=== PATIENT | male | born 1935 | race Caucasian/White ===

== ENCOUNTER 2017-01-12 09:22 | Day surgery (SDC) | payer MEDICARE ==
[2017-01-08 09:58] LABS: HEMATOCRIT 43.3 % (40.0-51.0)
[2017-01-08 11:04] LABS: BUN (BLOOD UREA NITROGEN) 29 MG/DL (6-23); CALCIUM, SERUM 9.2 MG/DL (8.5-10.4); CHLORIDE, SERUM 100 MMOL/L (96-112); CO2 (CARBON DIOXIDE) 32 MMOL/L (24-34); GFR AFRICAN AMERICAN 48 ML/MIN (>=60); GFR NON AFRICAN AMERICAN 41 ML/MIN (>=60); GLUCOSE, SERUM 110 MG/DL (60-99); POTASSIUM, SERUM 4.6 MMOL/L (3.5-5.3); SODIUM, SERUM 138 MMOL/L (135-148)
[2017-01-08 11:05] LABS: CREATININE 1.55 MG/DL (0.70-1.30)
--- NOTE | ~2017-01-12 | OP ---
Record Of Operation [facility] [address] [place]. [address] NAME: SIMA OVIEDO JR : 35 STATUS : [place] [facility] [place] [facility] [place] PAT#: [id number] AGE: 81 ADM/REG DATE : 01/12/17 MR#: [id number] REPORT SERV DATE: 01/12/17 DICTATED BY: Svetlana JOHNSON DATE: 01/12/17 REPORT STATUS : Draft TRANSCRIBED BY: LUCIAN DATE: 01/12/17 DATE OF PROCEDURE: 01/12/2017 PREOPERATIVE DIAGNOSIS: Right mid cheek invasive, poorly differentiated squamous carcinoma. POSTOPERATIVE DIAGNOSIS: Right mid cheek invasive, poorly differentiated squamous carcinoma. NAME OF OPERATION: 1. Wide excision of squamous cell carcinoma of the right cheek with frozen section. 2. Re-excision of right cheek, 6 o'clock margin with frozen section. 3. Surgical excisional preparation of right cheek defect. 4. Reconstruction of right cheek defect with rotation flap closure. FINDINGS: A 17 mm tall x 19 mm wide initial excision of right mid cheek squamous carcinoma with 3 mm margins; frozen section showed margins clear except for in situ squamous carcinoma at the 6 o'clock margin; additional 7 mm x 2.5 mm, 6 o'clock margin, sent for frozen section; additional 6 o'clock margin free of tumor on frozen section. INDICATIONS: This 81-year-old gentleman had a lesion of his right cheek incisional biopsy revealing a poorly differentiated squamous carcinoma with invasive carcinoma focally at the depth of the wound, and one of the borders, with extensive in situ at the peripheral borders as well. He was referred for definitive excision. The pros and cons, alternatives, benefits, risks, limitations, and complications (including, but not limited to, infection, scarring, ectropion, suture reaction, recurrence of tumor, imponderables) were discussed with the patient, and his , and his daughter. No guarantees were expressed. He understands and wishes to proceed. Proper consent was obtained. DESCRIPTION OF PROCEDURE: He was taken into the operating room and given general oral endotracheal anesthesia in the supine position. The face and upper neck were prepped with Hibiclens and saline followed by isopropyl alcohol. None of these solutions got in his eyes. Sterile drapes were applied. Careful markings were made around the periphery of the tumor on the right mid cheek. After that a 3 mm margin was marked out circumferentially around this and the resulting measurement was, as stated above, 17 mm tall and 13 mm wide. The right medial labial fold was marked out and then the parallel radial relaxed skin tension lines were marked out from there on the cheek all way to the lateral canthal area. A fusiform ellipse was marked out around this, anticipating that might be the possible closure. The cheek was injected with 1% Xylocaine with 1:100,000 epinephrine. An infraorbital nerve area was injected with 0.5% Marcaine with 1:200,000 epinephrine. The 12 o'clock, 3 o'clock, 6 o'clock, and 9 o'clock positions on the specimen had been marked out as well. The #15C blade was used to incise the cheek according to the markings to include the margins and the tumor. The blade was beveled away from the tumor. Before the tumor was removed from the tumor bed, a long suture was placed at the 12 o'clock position, and a short suture was placed at the 6 o'clock position. The #15 blade was then used to remove the tumor with its margins, full thickness skin, and approximately 1 cm of fat. The pathologist was brought into the room for orientation and to perform frozen Record Of Operation [address] [address] NAME: SIMA OVIEDO : 35 STATUS : REG [facility] [place] [place] PAT#: [id number] AGE: 81 ADM/REG DATE : 01/12/17 MR#: [id number] REPORT SERV DATE: 01/12/17 DICTATED BY: Svetlana JOHNSON DATE: 01/12/17 REPORT STATUS : Draft TRANSCRIBED BY: LUCIAN DATE: 01/12/17 sections. While the frozen sections were being performed, a large lateral rotation flap was developed in the subcutaneous plane with the [place] needle tip cautery at a low setting. This elevation was carried out over and passed the malar eminence and down inferiorly as well. Medial to the excision, flap elevation was accomplished to the mid nasofacial sulcus and to the melolabial fold. Total flap development was 8 cm x 6 cm. Frozen sections returned showing margins free of tumor except for in situ squamous carcinoma at the 6 o'clock position. An additional 2.5 mm x 7 mm strip of 6 o'clock margin was given to the pathologist with ink marking the new true margin. The pathologist watched me take the specimen, so he had proper orientation. Frozen sections returned showing margins free of tumor. Next, the lateral cheek flap was rotated in a fashion to prevent ectropion. It was rotated and secured with 4-0 Vicryl deep. The dog-ear deformity superiorly was treated in a standard fashion and closed with 5-0 and 6-0 Vicryl. Inferiorly the dog ear deformity was treated with the #15 blade in a standard fashion and closed with 5-0 Vicryl. The skin edges were coapted with Dermabond after the skin had been cleaned with hydrogen peroxide and dried. Mastisol and paper tape were also applied in antitension fashion. He was awakened, extubated, and taken to the recovery room in good condition having tolerated the procedure well. Home going instructions include recheck in the office in 13 days. He is to keep the tape dry and intact. He is to limit laughing, talking, smiling, chewing, trying to keep his cheeks still. He was given prescriptions for cephalexin 500 mg #14 one p.o. b.i.d. until all taken; generic Zofran 8 mg ODT #6 one dissolved orally q.6 hours p.r.n. nausea or vomiting; hydrocodone 7.5 mg/325 APAP #15 one p.o. q.4 to 6 hours p.r.n. pain. HJL/MODL Svetlana Johnson M.D. / [id number] CC: Ambar Downs M.D. Tareck Kadrie, M.D. Walter Rose, M.D.
[~2017-01-12 09:22] MED LIST: ACET500CAP PO; ALBUTEROL5 INH; ASAB PO; C2 PO; CENTRUM PO; CIP5 PO; DSS PO; DUONEB INH; FERROUS SULF325 M1 PO; FESO4UDL PO; FLAG500TAB PO; FLOMAX4 PO; FLORASTOR250 MG PO; FOLATE 1 MG PO; FOLIC PO; HYDROCODONE/APAP PO; INDO50 PO; IRON325 MG PO; IVIGLIQ IV; L20 PO; L40 PO; L5 PO; LOP25 PO; MAALOX PO; MAX25 PO; MOBIC15 MG PO; MTX2.5 PO; MULTIVITAMI1 PO; NEUR300 PO; NEUR600 PO; NITROQUICK0.4 MG SL; NORCO1 TA1 PO; NOVOLOG SC; NOVOPEN SC; P5 PO; PACERONE200 MG PO; PCET PO; PEP20 PO; PHILLIPS M800 MG/5 M PO; PLAQ200B PO; PRESERVISION A1 EAC1 PO; PRIN20 PO; T PO; THIAMINE PO; TOPXL25 PO; TYLENOL 8 HR650 MG PO; ULTRAM50 PO; VICODINTAB PO; VITAMIN B-1500 MG PO; VITAMIN D1000 UNI1 PO; VITC500 PO; WARFARIN SODIUM PO; Z100 PO; ZOCOR10 PO; ZOCOR40 PO; ZOFRAN ODT4 MG PO; ZOLOFT25 MG PO
[2017-06-25] MEDS ORDERED: PRESERVISION A1 EAC1 PO (19:34)
[2017-06-25] MEDS ORDERED: FERROUS SULF325 M1 PO (19:34)
[2017-06-25] MEDS ORDERED: Z100 PO (19:34)
[2017-06-25] MEDS ORDERED: FOLIC PO (19:35)
[2017-06-25] MEDS ORDERED: L20 PO (19:35)
[2017-06-25] MEDS ORDERED: VITAMIN D31000 UNIT PO (19:35)
[2017-06-25] MEDS ORDERED: LOP25 PO (19:36)
[2017-06-25] MEDS ORDERED: CENTRUM PO (19:37)
[2017-06-25] MEDS ORDERED: NEUR600 PO (19:37)
[2017-06-25] MEDS ORDERED: NORCO1 TA2 PO (19:39)
[2017-06-25] MEDS ORDERED: IVIGLIQ IV (19:39)
[2017-06-25] MEDS ORDERED: ACET500CAP PO (19:40)
[2017-06-25] MEDS ORDERED: LUCENTIS OPH (19:42)
== END 2017-01-12 17:33 | disposition home or self-care (01) ==
LOC: SDC 09:22
PROVIDERS: Specialist
PROC: 0KX10ZZ Transfer Facial Muscle, Open Approach (ICD-10-PCS; principal; 2017-01-12 11:00)
DX: D09.8 Carcinoma in situ of other specified sites (principal); I13.0 Hypertensive heart and chronic kidney disease with heart failure and stage 1 through stage 4 chronic kidney disease, or unspecified chronic kidney disease; I50.9 Heart failure, unspecified; I48.91 Unspecified atrial fibrillation; N18.9 Chronic kidney disease, unspecified; E78.00 Pure hypercholesterolemia, unspecified; Z79.82 Long term (current) use of aspirin; Z79.52 Long term (current) use of systemic steroids; Z79.891 Long term (current) use of opiate analgesic; Z79.899 Other long term (current) drug therapy; Z98.890 Other specified postprocedural states; Z89.421 Acquired absence of other right toe(s)
CPT/HCPCS: 80048; 82962; 85014; 85018; 88305; 88331; 88332; 93005; A9270-GY; J0690; J2370; J2405; J2710; J3010

== ENCOUNTER 2017-07-15 01:43 | Inpatient (IN) | payer MEDICARE ==
[~2017-07-15] VITALS: Ht 175.3 cm; Wt 121.2 kg
--- NOTE | ~2017-07-15 | CN ---
Consultation Report [facility] [address] [place]. [address] NAME: SIMA REEVES JR : 35 STATUS : ADM Chad PAT#: [id number] AGE: 82 ADM/REG DATE : 07/15/17 MR#: [id number] REPORT SERV DATE: 07/16/17 DICTATED BY: ROSSY CHOUDHARY DATE: 07/16/17 REPORT STATUS : Draft TRANSCRIBED BY: MODL DATE: 07/16/17 PULMONARY CONSULTATION DATE OF CONSULTATION: 07/16/2017 REASON FOR CONSULTATION: Hypoxia and hypercapnia. HISTORY OF PRESENT ILLNESS: Note the history is taken from the available medical record and from the patient. Mr. 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 He was found to have an elevated pCO2 and low PO2 on arterial blood gas, so Pulmonary was consulted for assistance. Currently, the patient is oriented and gives some of the history. He states he was noted to have significant shortness of breath by his outpatient neurologist at a recent appointment, but denies any dyspnea. He denies wheezing, cough, sputum production, or other pulmonary complaints. He states his activity is severely limited by comorbid conditions including his chronic inflammatory demyelinating polyneuropathy. He states he has never been diagnosed with any pulmonary disease, though many years ago he was told he had COPD. He denies a history of obstructive sleep apnea, though he has had two sleep studies. He states he has never been on CPAP, BiPAP, or supplemental oxygen. He states he has never been on any pulmonary medications. With regard to his polyneuropathy, he states it is confined to lower extremities that review of the available medical record indicates that his upper extremities are involved as well. PAST MEDICAL HISTORY: 1. Former smoker. 2. 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 3. Chronic kidney disease. 4. Osteomyelitis of the toe. 5. Atrial fibrillation. 6. Diastolic heart failure. 7. Gout. 8. Psoriatic arthritis previously treated with methotrexate. 9. Squamous cell carcinoma of the cheek - excised. 10.Osteoarthritis. 11.Recurrent urinary tract infection. 12.Diabetes mellitus. 13.Hyperlipidemia. 14.Benign prostatic hypertrophy. Consultation Report [place] [address] [place]. [address] NAME: SIMA REEVES JR : 35 STATUS : ADM Chad PAT#: [id number] AGE: 82 ADM/REG DATE : 07/15/17 MR#: [id number] REPORT SERV DATE: 07/16/17 DICTATED BY: ROSSY CHOUDHARY DATE: 07/16/17 REPORT STATUS : Draft TRANSCRIBED BY: MODRiley DATE: 07/16/17 15.Anemia. 16.Left footdrop. 17.Right total knee arthroplasty. 18.Previous rotator cuff surgery. 19.Bilateral hip arthroplasty. 20.Carpal tunnel syndrome. 21.Rotator cuff surgery. FAMILY HISTORY: He denies family history of pulmonary diseases. SOCIAL HISTORY: He smoked one pack of cigarettes per day for many years and quit in 1967. He denies ethanol intake, past/present drug use, chewing tobacco or occupational exposures. He is and has two daughters. As noted, he has been residing in [place]. He previously worked in a [employer], but states he had no occupational exposures as noted. MEDICATIONS: Outpatient and inpatient medications were reviewed and are as documented in the record. He was on no pulmonary medications prior to admission. ALLERGIES: HE DENIES MEDICATION ALLERGIES. REVIEW OF SYSTEMS: A 10-point system review was conducted and is remarkable for the symptoms as described in the history of present illness. He denies GERD symptoms or nasal symptoms. He denies carlos symptoms of obstructive sleep apnea, though he states that he sleeps "quite a bit during the day" due to boredom and lack of activity. PHYSICAL EXAMINATION: VITAL SIGNS: Temperature 96.6 degrees, heart rate 76, blood pressure 131/61, respiratory rate 20, oxygen saturation 90% on supplemental oxygen at a flow rate of 2 L/minute. GENERAL: Obese white male. Alert, oriented to name and place. Appropriate. No apparent distress. HEENT: Normocephalic. Atraumatic. There is no scleral icterus. The conjunctivae are clear. The oropharynx is clear. NECK: Supple. No lymphadenopathy was noted. LUNGS: Fair effort. There are diminished breath sounds at both bases. The lungs are clear to auscultation bilaterally. HEART: Regular rate and rhythm. No ectopy was noted. There is a 3/6 systolic murmur. ABDOMEN: Soft. Nontender. Nondistended. Normal bowel sounds are noted in all four quadrants. BILATERAL EXTREMITIES: There is trace pretibial edema. No cyanosis or clubbing was noted. NEUROLOGICAL: Generalized weakness in the upper and lower extremities with the weakness being worse in the lower extremities. SKIN: No rashes were noted. There is generalized pallor. Consultation Report [facility] [address] [address] NAME: SIMA REEVES JR : 35 STATUS : ADM Chad PAT#: [id number] AGE: 82 ADM/REG DATE : 07/15/17 MR#: [id number] REPORT SERV DATE: 07/16/17 DICTATED BY: ROSSY CHOUDHARY DATE: 07/16/17 REPORT STATUS : Draft TRANSCRIBED BY: LUCIAN DATE: 07/16/17 LABORATORY RESULTS: The labs were reviewed and are as documented in the record. Notable labs include a white blood cell count of 13.1. The procalcitonin is 0.17. The BNP is 52. The C-reactive protein is 215 with an ESR of 99. Arterial blood gas revealed pH of 7.36, pCO2 of 63, PO2 of 53 on room air. Arterial blood gas revealed pH of 7.32, pCO2 of 72, PO2 of 69 on supplemental oxygen at a flow rate of 2 L/minute. The chest x-ray done this admission did not reveal any infiltrates, effusions, or nodules. There was an elevated right hemidiaphragm. There are low lung volumes consistent with poor effort. ASSESSMENT AND PLAN: Mr. Reeves is an 82-year-old white male, former smoker, with known low forced vital capacity and low diffusing capacity on prior pulmonary function testing and possible obstructive sleep apnea. He has a stable eventration of the right hemidiaphragm. He was admitted with hypoxemia and hypercapnic respiratory failure that is likely related to his underlying neuromuscular weakness as well as his possible obstructive sleep apnea. He may qualify for BiPAP/other home ventilator based on his neuromuscular weakness. We would need to obtain his previous sleep study results. Additionally, we would need an overnight oximetry and current spirogram. He does qualify based on his elevated pCO2, but would need a forced vital capacity less than 50% of predicted on spirogram and an overnight oximetry with an oxygen saturation less than or equal to 88% for more than five minutes with the patient on supplemental oxygen. An overnight oximetry and bedside spirogram will be ordered for this patient. If he does not qualify based on these criteria, then he will need an outpatient polysomnogram. Recommend continuing him on supplemental oxygen. Consider consulting Neurology as his ESR and CRP are elevated. Thank you very much for this consultation. CHRISTINA/LUCIAN Rossy Choudhary M.D. / [id number] CC: Consultation Report [address] [place]. [address] NAME: SIMA REEVES : 35 STATUS : ADM Chad PAT#: [id number] AGE: 82 ADM/REG DATE : 07/15/17 MR#: [id number] REPORT SERV DATE: 07/16/17 DICTATED BY: ROSSY CHOUDHARY DATE: 07/16/17 REPORT STATUS : Draft TRANSCRIBED BY: LUCIAN DATE: 07/16/17 Ambar Austin M.D.
--- NOTE | ~2017-07-15 | PUL ---
[place] [address] [place]. [address] NAME: SIMA OVIEDO JR : 35 STATUS : ADM Chad PAT#: [id number] AGE: 82 ADM/REG DATE : 07/15/17 MR#: [id number] REPORT SERV DATE: 07/17/17 DICTATED BY: ROSSY CHOUDHARY DATE: 07/17/17 REPORT STATUS : Draft TRANSCRIBED BY: MODL DATE: 07/17/17 PULMONARY FUNCTION TEST OVERNIGHT OXIMETRY REPORT START DATE OF TESTIN07/16/2017. END DATE OF TESTIN07/17/2017. COMMENTS: Testing conducted with the patient breathing supplemental oxygen at a flow rate of 2 L/minute. RESULTS: Total valid sampling time 6 hours 11 minutes and 59 seconds. Total time with an oxygen saturation less than 88%, 21 minutes and 2 seconds. Oxygen desaturation event index 11.3. IMPRESSION: There was significant desaturation during this study conducted while the patient was breathing supplemental oxygen at a flow rate of 2 L/minute. The oxygen desaturation event index was elevated suspicious for possible obstructive sleep apnea. Recommend increasing supplemental oxygen flow rate to a minimum of 3 L/minute with sleep. Additionally, recommend formal sleep study to evaluate for possible obstructive sleep apnea if clinically indicated. PS/LUCIAN Rossy Choudhary M.D. / [id number] CC: Ambar Austin M.D.
--- NOTE | ~2017-07-15 | PUL ---
[place] [address] [place]. [address] NAME: SIMA OVIEDO JR : 35 STATUS : ADM IN [facility]#: [id number] AGE: 82 ADM/REG DATE : 07/17/17 MR#: [id number] REPORT SERV DATE: 07/19/17 DICTATED BY: ROSSY CHOUDHARY DATE: 07/19/17 REPORT STATUS : Draft TRANSCRIBED BY: MODL DATE: 07/19/17 PULMONARY FUNCTION TEST DATE OF TESTIN07/17/2017 DIAGNOSIS: Delirium. RESULTS: 1. FEV1 of 0.75 L (28% of predicted). 2. FVC 1.18 L (31% of predicted). 3. FEV1/FVC ratio 64%. IMPRESSION: There is very severe obstructive ventilatory impairment. The forced vital capacity is reduced suggestive of restriction. PS/MODL Rossy Choudhary M.D. / [id number] CC: Ambar Parham M.D.
--- NOTE | ~2017-07-15 | PUL ---
[place] [address] [place]. [address] NAME: SIMA OVIEDO JR : 35 STATUS : ADM Chad PAT#: [id number] AGE: 82 ADM/REG DATE : 07/15/17 MR#: [id number] REPORT SERV DATE: 07/17/17 DICTATED BY: ROSSY CHOUDHARY DATE: 07/17/17 REPORT STATUS : Draft TRANSCRIBED BY: MODL DATE: 07/17/17 PULMONARY FUNCTION TEST OVERNIGHT OXIMETRY REPORT START DATE OF TESTIN07/15/2017. END DATE OF TESTIN07/16/2017. COMMENTS: Testing was conducted with the patient breathing supplemental oxygen at a flow rate of 2 L/minute. RESULTS: Total valid sampling time 6 hours 11 minute and 13 seconds. Total time with an oxygen saturation less than 88%, 6 minutes and 6 seconds. Oxygen desaturation event index 8.4. IMPRESSION: There was significant oxygen desaturation during this study conducted while the patient was breathing supplemental oxygen at a flow rate of 2 L/minute. The oxygen desaturation event index was elevated suspicious for possible obstructive sleep apnea. RECOMMEND: Supplemental oxygen at a minimum flow rate of 3 L/minute with sleep. Additionally, recommend formal sleep study to evaluate for possible obstructive sleep apnea if clinically indicated. PS/LUCIAN Rossy Choudhary M.D. / [id number] CC: Ambar Austin M.D.
--- NOTE | ~2017-07-15 | HP ---
History And Physical [place] [address] [facility] [place]. [address] NAME: SIMA OVIEDO JR : 35 STATUS : ADM Chad PAT#: [id number] AGE: 82 ADM/REG DATE : 07/15/17 MR#: [id number] REPORT SERV DATE: 07/15/17 DICTATED BY: KHOA VILLALPANDO DATE: 07/15/17 REPORT STATUS : Draft TRANSCRIBED BY: MODRiley DATE: 07/15/17 DATE OF ADMISSION: 07/15/2017 CHIEF COMPLAINT: Acute mental status change. HISTORY OF PRESENT ILLNESS: The patient is an 82-year-old male, who comes from [facility] for increasing confusion over the last week. The patient was brought in by , who has currently returned home and not available for this communications writer, but per reports when talking with ER team and nursing staff has reported that the patient over the last week has had on and off waxing and waning mental status. Earlier today, the patient was in his normal state of mind, talking, able to hold, be alert to person, place, self, and situation. On my exam, the patient is only alert to person, not place or situation. Symptoms are intermittent and mild, but no pain or radiating symptoms. The patient denies any review of systems including no headache, nausea, vomiting, diaphoresis, shortness of breath, fever, chills, palpitations, swelling, or wheezing. There is no worsening or relieving factors that are noted. The patient's symptoms were better earlier when evaluated by the ER staff but worse at this time. REVIEW OF SYSTEMS: The patient when awakened to my questioning denies all 10-point review of systems, even confusion, however, he is still not oriented. PAST MEDICAL HISTORY: Obtained from medical records with history of CKD 4; osteomyelitis of the toe; squamous cell of cheek, post excision; diastolic heart failure; atrial fibrillation; psoriatic arthritis; chronic inflammatory demyelinating polyneuropathy. SOCIAL HISTORY: No smoking, alcohol, or illicits. FAMILY HISTORY: Coronary artery disease and cancer. ALLERGIES: NONE. SURGICAL HISTORY: Right total knee replacement, bilateral hip and back surgery, rotator cuff, carpal tunnel, wide excision of squamous cell on the right cheek and frozen section, right second toe amputation. MEDICATIONS: Allopurinol, Norvasc, aspirin, Dulcolax, ferrous sulfate, folic acid, Lasix, Neurontin, [place], Lopressor. also reports every three weeks gets IVIG. PHYSICAL EXAMINATION: VITAL SIGNS: Patient's blood pressure 124/79, temperature 98.1, pulse 97, respirations 20, O2 sats 96%. GENERAL: In no acute distress currently, resting, well developed, well nourished. EYES: No scleral icterus. EOMI. ENT: Nares patent. Dry mucous membranes. RESPIRATORY: Clear to auscultation. No wheezes, rales, however, when resting, does have History And Physical [address] [place]. [address] NAME: SIMA OVIEDO JR : 35 STATUS : ADM Chad PAT#: [id number] AGE: 82 ADM/REG DATE : 07/15/17 MR#: [id number] REPORT SERV DATE: 07/15/17 DICTATED BY: KHOA VILLALPANDO DATE: 07/15/17 REPORT STATUS : Draft TRANSCRIBED BY: LUCIAN DATE: 07/15/17 occasional snoring, mouth breather. CV: Regular rate. No rubs. 3/6 systolic murmur. GI: Soft, nontender, nondistended. Bowel sounds positive. : Deferred. MUSCULOSKELETAL: Moves extremities but diffusely weak. SKIN: Warm, dry. HEME: No bleeding or bruising. NEURO: Alert to person, no longer alert to place and situation and diffusely weak in muscle strength. PSYCH: Pleasant, cooperative but is quite confused of situation with repeating episodes of "I don't why, I don't remember," repeating this line multiple times. LABS: Procalcitonin 0.17. AB.36 pH, pCO2 of 63, pO2 of 53, bicarb 35.1. BNP 52. CMP: Sodium 134, potassium 5.0, chloride 94, carbon dioxide 33, BUN and creatinine 34 and 1.55, glucose 113, calcium 10.2, total protein 9.0, albumin 2.5, T bilirubin 0.5, AST/ALT 76 and 30. Troponin negative. Urinalysis: Negative leukocyte esterase and nitrites. WBC count 15.5, H and H 13 and 39.7, MCV 107.3, platelets 275. INR 1.0. CT head, no acute findings. ASSESSMENT AND PLAN: 1. Acute delirium. 2. Abnormal LFTs. 3. Hypertension. 4. Hypercapnia and hypoxia, questionable chronic. 5. Leukocytosis. 6. Microcytic anemia. 7. Chronic kidney disease stage 4. 8. Severe debility with chronic idiopathic polyradiculopathy. 9. Paroxysmal atrial fibrillation. PLAN: 1. For acute delirium, waxing/waning component, currently I am witnessing the waning component of delirium. It is possible secondary to change in environment. Initially, the patient was alert and oriented to ER staff but not currently. We will additionally check ammonia with the patient having subsequent elevated LFTs. He does have hypercarbia, may benefit from CPAP. Negative CT head. We will check RPR and hepatitis panel. Symptoms could also be secondary to gabapentin as the patient is on 1200 t.i.d. 2. Abnormal LFTs. We will check ammonia, follow CMP. 3. Hypertension, on medications. 4. Hypercapnia with hypoxia, chronic, pH is compensated, possible undiagnosed ANTONIO, overnight pulse oximetry. 5. Leukocytosis, unclear, reactive. No clear source of infection appreciated. 6. Microcytic anemia. B12, folate within normal limits. 7. Chronic kidney disease stage 4. Monitoring creatinine. 8. Severe debility with chronic idiopathic polyradiculopathy, on IVIG. We will check CRP and ESR. History And Physical [address] [address] NAME: SIMA OVIEDO JR : 35 STATUS : ADM Chad PAT#: [id number] AGE: 82 ADM/REG DATE : 07/15/17 MR#: [id number] REPORT SERV DATE: 07/15/17 DICTATED BY: KHOA VILLALPANDO DATE: 07/15/17 REPORT STATUS : Draft TRANSCRIBED BY: MODRiley DATE: 07/15/17 9. Paroxysmal atrial fibrillation, not on anticoagulation. Continue beta brooks and will need to revaluate anticoagulation risks, benefits. DISPOSITION: Pending evaluation from above. DDN/LUCIAN Khoa Villalpando MD / [id number] CC: Ambar Austin M.D.
--- NOTE | ~2017-07-15 | CN ---
Consultation Report [facility] [address] [place]. [address] NAME: SIMA OVIEDO JR : 35 STATUS : ADM IN [facility]#: [id number] AGE: 82 ADM/REG DATE : 07/17/17 MR#: [id number] REPORT SERV DATE: 07/18/17 DICTATED BY: DATE: REPORT STATUS : Draft TRANSCRIBED BY: MODL DATE: 07/18/17 NEUROLOGY CONSULTATION DATE OF CONSULTATION: 07/18/2017 REASON FOR CONSULT: Encephalopathy. HISTORY OF PRESENT ILLNESS: This is an 82-year-old male who presented to [facility] from rehab facility secondary to encephalopathy. The patient has had ongoing disorientation as well as confusion. The patient today however appeared to be much more alert and oriented. The patient does appear to have recurrent encephalopathy, for which the patient apparently has had multiple hospital admission in the past for recurrent encephalopathy. Also, the patient reports he only had one episode of confusion, required hospitalist admission about couple days ago. The patient reports not being aware of any recent illness, fever, chills, nausea, vomiting, chest pain, or shortness of breath. The patient does have chronic leg pain, especially in the left lower extremity. However, the patient during the hospital stay was noted to have leukocytosis, mild temperature elevation. No actual fevers. He does have no other changes in medication, was otherwise noted at the time of evaluation. REVIEW OF SYSTEMS: The patient's review of systems negative except for those mentioned in the HPI. FAMILY HISTORY: Significant for coronary artery disease and cancer. SOCIAL HISTORY: No current tobacco, alcohol, or recreational drug usage. ALLERGIES: THE PATIENT REPORTS NO KNOWN DRUG ALLERGIES. 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 MEDICATIONS: The patient's current hospital medications consist of aspirin, DuoNeb, Proventil, lactulose, Lopressor, Lovenox, Neurontin, Norvasc, as well as allopurinol. The patient's home medication consist of allopurinol, Norvasc, aspirin, Dulcolax, ferrous sulfate, folic acid, Lasix, gabapentin, [place] and Lopressor. PHYSICAL EXAMINATION: VITAL SIGNS: At the time of evaluation, the patient was noted to have vital signs with T- max of 99.6, heart rate of 73 to 107, respiration of 16 to 22, blood pressure of 127 to 149 over 60 to 75. GENERAL: The patient is well developed, well nourished, in no acute distress. CARDIOVASCULAR: Regular rate and rhythm. No carotid bruits were otherwise auscultated. Consultation Report [address] [place]. [address] NAME: SIMA OVIEDO JR : 35 STATUS : ADM IN PAT#: [id number] AGE: 82 ADM/REG DATE : 07/17/17 MR#: [id number] REPORT SERV DATE: 07/18/17 DICTATED BY: DATE: REPORT STATUS : Draft TRANSCRIBED BY: LUCIAN DATE: 07/18/17 PULMONARY: Clear to auscultation bilaterally. NEUROLOGIC: Generally, the patient is alert and oriented to person, place, year, and month. Follows simple and two-step commands. No dysarthria or aphasia was noted at time of evaluation. Intact registration with some difficulties with recall. Cranial nerves 2 through 12, pupils equal, round, and reactive to light. Extraocular eye movement was noted to be intact with intact [id number]-[id number] response. Symmetrical facial expression and sensation. Midline tongue. Normal palatal movement. Mild decreased hearing in bilateral ears. The patient demonstrated 5/5 right upper extremity strength, 4/5 bilateral lower extremity strength. The patient reports pain in the left lower extremity that was chronic as well as decreased range of movement in the left lower extremity secondary to pain. The patient reports decreased sensation in the left lower extremity from the knee down. Otherwise, he reports symmetrical sensation in bilateral upper and lower extremities. The patient reports altered sensation in bilateral hands. The patient does have normal finger- to-nose examination without ataxia. The patient was noted to have diminished trace reflexes throughout. 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 Gait was not evaluated secondary to the patient undergoing breathing treatment. LABORATORY STUDY: White blood cell count of 12.0, hemoglobin of 10.9, hematocrit of 34.7, and platelet count of 240. Chemistry panel: Sodium 141, potassium 4.2, chloride 105, bicarb 30, BUN of 22, creatinine 1.26, glucose of 103, calcium of 8.8, serum ammonia level 17. C-reactive protein of 215 and sedimentation rate of 99. MRI of the brain was reviewed. Generalized atrophy was noted but no other acute process was seen. IMPRESSION: Encephalopathy. The patient was noted to have apparent recent hospital admissions for encephalopathy. The patient reports only recent encephalopathy, unavailable hospital admission. The patient seems to have improvement in mental status today. Discussed with the patient regarding leukocytosis as well as mild increased temperature and possibility of lumbar puncture. The patient is very hesitant regarding lumbar puncture and is currently refusing the study. We will recommend obtaining EEG study. We will check thiamine and repeat sedimentation rate, CRP, and procalcitonin level. After serum thiamine was obtained, we will also start the patient on thiamine replacement with 100 mg IV daily. If the patient was noted to have any recurrent confusions or become febrile, we will obtain lumbar puncture. RECOMMENDATION: 1. EEG. 2. Serum thiamine, CRP, sedimentation rate, procalcitonin level. 3. We will supplement thiamine 100 mg IV daily after serum thiamine was obtained. 4. We will obtain lumbar puncture if the patient is noted to have any recurrent confusion or become febrile. Consultation Report [address] [place]. [address] NAME: NATALY OVIEDOJoel BAPTISTEGO : 35 STATUS : ADM IN [facility]#: [id number] AGE: 82 ADM/REG DATE : 07/17/17 MR#: [id number] REPORT SERV DATE: 07/18/17 DICTATED BY: DATE: REPORT STATUS : Draft TRANSCRIBED BY: LUCIAN DATE: 07/18/17 [facility]/LUCIAN Anjel Patiño MD / [id number] CC: Ambar Parham M.D.
--- NOTE | ~2017-07-15 | DS ---
Discharge Summary [facility] [id number] [place]. [address] NAME: SIMA OVIEDO JR : 35 STATUS : DIS IN PAT#: [id number] AGE: 82 ADM/REG DATE : 07/17/17 MR#: [id number] REPORT SERV DATE: 07/24/17 DICTATED BY: DATE: REPORT STATUS : Draft TRANSCRIBED BY: MODL DATE: 07/23/17 ADMISSION DATE: 07/17/2017 DISCHARGE DATE: 07/23/2017 DISCHARGE DIAGNOSES: 1. Metabolic encephalopathy, resolved. 2. 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 3. Microcytic anemia. 4. Chronic kidney disease, stage 3. 5. Chronic inflammatory demyelinating polyneuropathy. 6. Hypertension. 7. Debility. CONSULTING PHYSICIANS: Include Dr. Funez with Pulmonology as well as Dr. Kala Patiño with Neurology. DISCHARGE MEDICATIONS: Include allopurinol 200 mg p.o. b.i.d.; Norvasc 2.5 mg p.o. daily; aspirin 81 mg p.o. daily; Lasix 20 mg p.o. daily; Neurontin 900 mg p.o. t.i.d.; Lopressor 12.5 mg p.o. b.i.d.; [place] one tab p.o. b.i.d. p.r.n. for pain, 7.5 mg; ferrous sulfate 325 mg p.o. daily; Breo Ellipta 200/25 mcg one puff daily; albuterol MDI unit dose two puffs q.4 hours p.r.n. for shortness of breath. IMAGING: Includes CT of the brain without contrast, which demonstrated no acute intracranial abnormality, stable chronic ischemic white matter changes. Portable chest x-ray, which demonstrated no acute cardiopulmonary disease, stable eventration of the right diaphragm and low lung volumes. MRI of the brain without contrast, which demonstrated marked cerebral atrophy with periventricular leukoencephalopathy, no acute intracranial process noted. CT of the abdomen and pelvis without contrast, which demonstrated mild cholelithiasis without further CT evidence of cholecystitis, no biliary obstruction was noted, mild renal cortical thinning, no hydronephrosis or nephrolithiasis, left greater than right bibasilar atelectasis and trace left pleural effusion, diverticulosis without evidence of diverticulitis, coronary artery atherosclerosis and aortic valvular atherosclerosis suspected. For full H and P, please refer to Dr. Darius Villalpando's dictation on 07/15/2017. Please also see Dr. Rossy Funez's consultation dictation on 07/16/[address] Kala Patiño's consultation dictation on 07/18/2017. HOSPITAL COURSE/PROBLEM LIST: 1. Delirium/metabolic encephalopathy. This is resolved. It is likely multifactorial. The patient came in with hypoxic hypercapnic respiratory failure due to obesity hypoventilation syndrome as well as, what appears to be, obstructive and some restrictive disease on pulmonary function test. Hypoxia could have contributed to his metabolic encephalopathy as well as an elevated ammonia level. Ammonia level is normal, yesterday it was 20. His hypoxic hypercapnic respiratory failure have been improved with oxygen therapy as well as BiPAP at night, which we will continue upon Discharge Summary [address] [address] NAME: SIMA OVIEDO JR : 35 STATUS : DIS IN PAT#: [id number] AGE: 82 ADM/REG DATE : 07/17/17 MR#: [id number] REPORT SERV DATE: 07/24/17 DICTATED BY: DATE: REPORT STATUS : Draft TRANSCRIBED BY: MODL DATE: 07/23/17 discharge. He will follow up with Dr. Rossy Funez in 1 month post discharge for further PFT testing and pulmonary workup. He will leave with a prescription for Breo Ellipta as well as albuterol MDI p.r.n. for shortness of breath. 2. Microcytic anemia. We did a peripheral smear, which showed very low formation which was concerning for multiple myeloma. SPEP and UPEP were performed, which were both negative. 3. Chronic kidney disease, stage 3. His creatinine yesterday was 1.53, which is at baseline for him. 4. CIDP, chronic inflammatory demyelinating polyneuropathy. The patient is followed by Dr. Sanders, neurologist as an outpatient. He receives IVIG infusions every 3 weeks. His last infusion was on 07/19/2017, here in the hospital. He will follow up with Dr. Sanders as an outpatient. 5. Hypertension, this is controlled. 6. Debility. The patient was evaluated by PT and OT and he will continue his therapy post discharge. Again, he is going to [facility] in [place], [place] for further rehab prior to going home. This discharge took greater than 30 minutes due to coordination with case management, medication reconciliation, education of the patient, coordination with consulting physicians. DIYA/LUCIAN Yeison Landon, [employer] Sohan Irving M.D. / [id number] CC: Ambar Parham M.D. Hytham Kadrie, M.D. Pamela Sud, M.D.
[~2017-07-15 01:43] MED LIST changes: +LUCENTIS OPH; +NORCO1 TA2 PO; +VITAMIN D31000 UNIT PO
[2017-07-15 03:16] LABS: BASOPHILS 0.2 %; BASOPHILS ABSOLUTE 0.03 10/3/uL (0.0-0.16); EOSINOPHILS ABSOLUTE 0.15 10/3/uL (0.0-0.53); HEMATOCRIT 39.7 % (40.0-51.0); IMMATURE GRANULOCYTES 0.4 %; IMMATURE GRANULOCYTES ABSOLUTE 0.06 10/3/uL (0.0-0.11); LYMPHOCYTES 16.9 %; LYMPHOCYTES ABSOLUTE 2.61 10/3/uL (0.67-4.30); MANUAL DIFF NO %; MEAN CORPUS HGB CONC 32.7 g/dL (32.0-36.0); MEAN CORPUSCULAR HEMOGLOB 35.1 pg (26.0-34.0); MEAN CORPUSCULAR VOLUME 107.3 fL (80-100); MEAN PLATELET VOLUME 9.9 fL (9.2-13.0); MONOCYTES 10.9 %; MONOCYTES ABSOLUTE 1.69 10/3/uL (0.21-1.20); NEUTROPHILS 70.6 %; NEUTROPHILS ABSOLUTE 10.91 10/3/uL (2.02-8.40); PLATELET COUNT 275 10/3/uL (150-400); RBC DISTRIBUTION WIDTH 14.2 % (12.0-16.0); WHITE BLOOD CELLS 15.5 10/3/uL (4.5-10.5)
[2017-07-15 03:19] LABS: ASCORBIC ACID (UR NOT ORDER) 40 (NEG); BILIRUBIN, URINE NEGATIVE (NEG); ER URINALYSIS TAT 0 Hrs 08 Mins; KETONE, URINE NEGATIVE (NEG); LEUKOCYTE ESTERASE(NOT OR NEG (NEG); NITRITE (URINE) NEG (NEG); WBC (NOT ORDERED) (RFLEX) 1 (0-5)
[2017-07-15 03:24] LABS: PARTIAL THROMBO TIME 30.2 SEC (22.5-37.2); PROTIME (NOT ORD) 13.5 SEC (12.0-14.5)
[2017-07-15 03:34] LABS: A/G RATIO 0.4 (0.7-1.9); ALBUMIN 2.5 G/DL (3.5-5.0); BUN (BLOOD UREA NITROGEN) 34 MG/DL (6-23); CALCIUM, SERUM 10.2 MG/DL (8.5-10.4); CHLORIDE, SERUM 94 MMOL/L (96-112); CO2 (CARBON DIOXIDE) 33 MMOL/L (24-34); CREATININE 1.55 MG/DL (0.70-1.30); GFR AFRICAN AMERICAN 48 ML/MIN (>=60); GFR NON AFRICAN AMERICAN 41 ML/MIN (>=60); GLOBULIN 6.5 G/DL (2.5-4.1); LACTATE 0.5 MMOL/L (0.3-2.4); SGPT(ALT) 30 U/L (5-65); SODIUM, SERUM 134 MMOL/L (135-148); TOTAL BILIRUBIN 0.5 MG/DL (0-1.2); TROPONIN I <0.02 NG/ML (<0.05)
[2017-07-15 03:35] LABS: ALKALINE PHOSPHATASE 80 U/L (45-117); GLUCOSE, SERUM 113 MG/DL (60-99); SGOT(AST) 76 U/L (5-40)
[2017-07-15 03:49] LABS: ALLENS TEST Pos; BE (BASE EXCESS) 7.5 MEQ/L (0 +/- 2.5); CARBOXYHEMOGLOBIN 2.2 % (0-3); HCO3 (ACTUAL BICARBONATE) 35.1 MEQ/L (23-27); HEMOBLOGIN CONTENT 13.2 G/DL (14-18); INSTRUMENT SERIAL # 8087; METHEMOGLOBIN 0.1 % (0-3); O2 CONTENT 15.5 VOL% (18-24); OPERATOR ID 33449; PCO2 (CO2 TENSION) 63 MMHG (35-45); PO2 (O2 TENSION) 53 MMHG (79-93); SAMPLE Arterial; pH 7.36 (7.37-7.43)
[2017-07-15] MEDS ORDERED: L20 PO ×2 (04:55→10:27)
[2017-07-15] MEDS ORDERED: NEUR400 PO ×2 (04:55→10:28)
[2017-07-15] MEDS ORDERED: LOP25 PO ×2 (04:57→10:28)
[2017-07-15] MEDS ORDERED: DULCOLAX STOOL100 MG PO (04:58)
[2017-07-15] MEDS ORDERED: Z100 PO ×2 (04:58→10:29)
[2017-07-15] MEDS ORDERED: ASAB PO (04:59)
[2017-07-15] MEDS ORDERED: NORV25 PO ×2 (04:59→10:29)
[2017-07-15] MEDS ORDERED: FERROUS SULF325 M1 PO ×2 (05:00→10:26)
[2017-07-15] MEDS ORDERED: FOLIC PO ×2 (05:02→10:27)
[2017-07-15] MEDS ORDERED: NORCO1 TA2 PO ×2 (05:03→10:30)
[2017-07-15] MEDS ORDERED: *UNABLE3 (05:04)
[2017-07-15] MEDS ORDERED: D.O.S.100 MG PO (10:29)
[2017-07-15] MEDS ORDERED: HALF81 PO (10:37)
[2017-07-15 17:19] LABS: CALCIUM IONIZED 4.62 MG/DL (3.80-4.80)
[2017-07-16 05:18] LABS: ALLENS TEST Pos; BE (BASE EXCESS) 7.5 MEQ/L (0 +/- 2.5); DEVICE NC; HCO3 (ACTUAL BICARBONATE) 35.8 MEQ/L (23-27); HEMOBLOGIN CONTENT 11.6 G/DL (14-18); INSTRUMENT SERIAL # 8087; METHEMOGLOBIN 0.3 % (0-3); O2 CONTENT 14.8 VOL% (18-24); OPERATOR ID 33449; PCO2 (CO2 TENSION) 72 MMHG (35-45); PO2 (O2 TENSION) 69 MMHG (79-93); SAMPLE Arterial; pH 7.32 (7.37-7.43)
[2017-07-16 05:36] LABS: BASOPHILS 0.1 %; BASOPHILS ABSOLUTE 0.01 10/3/uL (0.0-0.16); EOSINOPHILS 1.9 %; EOSINOPHILS ABSOLUTE 0.25 10/3/uL (0.0-0.53); HEMOGLOBIN 11.2 g/dL (13.6-17.8); IMMATURE GRANULOCYTES 0.5 %; IMMATURE GRANULOCYTES ABSOLUTE 0.06 10/3/uL (0.0-0.11); LYMPHOCYTES 14.6 %; LYMPHOCYTES ABSOLUTE 1.91 10/3/uL (0.67-4.30); MEAN CORPUS HGB CONC 31.5 g/dL (32.0-36.0); MEAN CORPUSCULAR HEMOGLOB 34.7 pg (26.0-34.0); MEAN CORPUSCULAR VOLUME 109.9 fL (80-100); MEAN PLATELET VOLUME 9.4 fL (9.2-13.0); MONOCYTES ABSOLUTE 1.44 10/3/uL (0.21-1.20); NEUTROPHILS 71.9 %; NEUTROPHILS ABSOLUTE 9.43 10/3/uL (2.02-8.40); PLATELET COUNT 242 10/3/uL (150-400); RBC DISTRIBUTION WIDTH 14.1 % (12.0-16.0); RED CELL COUNT 3.23 10/6/uL (4.7-6.1); WHITE BLOOD CELLS 13.1 10/3/uL (4.5-10.5)
[2017-07-16 05:37] LABS: HEMATOCRIT 35.5 % (40.0-51.0); MANUAL DIFF NO %
[2017-07-16 05:54] LABS: A/G RATIO 0.4 (0.7-1.9); ALBUMIN 2.1 G/DL (3.5-5.0); ALKALINE PHOSPHATASE 72 U/L (45-117); BUN (BLOOD UREA NITROGEN) 31 MG/DL (6-23); CALCIUM, SERUM 9.3 MG/DL (8.5-10.4); CHLORIDE, SERUM 101 MMOL/L (96-112); CO2 (CARBON DIOXIDE) 34 MMOL/L (24-34); GFR AFRICAN AMERICAN 54 ML/MIN (>=60); GFR NON AFRICAN AMERICAN 46 ML/MIN (>=60); GLOBULIN 5.4 G/DL (2.5-4.1); GLUCOSE, SERUM 114 MG/DL (60-99); POTASSIUM, SERUM 4.3 MMOL/L (3.5-5.3); SGOT(AST) 56 U/L (5-40); SGPT(ALT) 27 U/L (5-65); SODIUM, SERUM 139 MMOL/L (135-148); TOTAL BILIRUBIN 0.3 MG/DL (0-1.2); TOTAL PROTEIN 7.5 G/DL (6.0-8.5)
[2017-07-16 06:21] LABS: SED RATE 99 MM/HR (0-15)
[2017-07-17 10:07] LABS: BASOPHILS 0.2 %; BASOPHILS ABSOLUTE 0.02 10/3/uL (0.0-0.16); EOSINOPHILS ABSOLUTE 0.23 10/3/uL (0.0-0.53); HEMOGLOBIN 11.2 g/dL (13.6-17.8); IMMATURE GRANULOCYTES 0.5 %; IMMATURE GRANULOCYTES ABSOLUTE 0.06 10/3/uL (0.0-0.11); LYMPHOCYTES 13.3 %; LYMPHOCYTES ABSOLUTE 1.57 10/3/uL (0.67-4.30); MANUAL DIFF NO %; MEAN CORPUSCULAR HEMOGLOB 35.3 pg (26.0-34.0); MEAN CORPUSCULAR VOLUME 110.4 fL (80-100); MEAN PLATELET VOLUME 9.3 fL (9.2-13.0); MONOCYTES 12.6 %; MONOCYTES ABSOLUTE 1.49 10/3/uL (0.21-1.20); NEUTROPHILS 71.4 %; NEUTROPHILS ABSOLUTE 8.42 10/3/uL (2.02-8.40); PLATELET COUNT 236 10/3/uL (150-400); RBC DISTRIBUTION WIDTH 13.7 % (12.0-16.0); RED CELL COUNT 3.17 10/6/uL (4.7-6.1); WHITE BLOOD CELLS 11.8 10/3/uL (4.5-10.5)
[2017-07-17 10:24] LABS: A/G RATIO 0.4 (0.7-1.9); ALBUMIN 1.9 G/DL (3.5-5.0); ALKALINE PHOSPHATASE 81 U/L (45-117); BUN (BLOOD UREA NITROGEN) 22 MG/DL (6-23); CALCIUM, SERUM 9.2 MG/DL (8.5-10.4); CHLORIDE, SERUM 102 MMOL/L (96-112); CO2 (CARBON DIOXIDE) 34 MMOL/L (24-34); CREATININE 1.27 MG/DL (0.70-1.30); GFR AFRICAN AMERICAN 61 ML/MIN (>=60); GFR NON AFRICAN AMERICAN 52 ML/MIN (>=60); GLOBULIN 5.3 G/DL (2.5-4.1); GLUCOSE, SERUM 143 MG/DL (60-99); POTASSIUM, SERUM 4.8 MMOL/L (3.5-5.3); SGOT(AST) 43 U/L (5-40); SGPT(ALT) 26 U/L (5-65); SODIUM, SERUM 139 MMOL/L (135-148); TOTAL BILIRUBIN 0.4 MG/DL (0-1.2); TOTAL PROTEIN 7.2 G/DL (6.0-8.5)
[2017-07-17 10:46] LABS: PLATELET ESTIMATE ADQ (ADEQUATE)
[2017-07-18 08:14] LABS: BASOPHILS 0.1 %; BASOPHILS ABSOLUTE 0.01 10/3/uL (0.0-0.16); EOSINOPHILS 1.7 %; HEMATOCRIT 34.7 % (40.0-51.0); HEMOGLOBIN 10.9 g/dL (13.6-17.8); IMMATURE GRANULOCYTES 0.6 %; IMMATURE GRANULOCYTES ABSOLUTE 0.07 10/3/uL (0.0-0.11); LYMPHOCYTES 18.2 %; LYMPHOCYTES ABSOLUTE 2.18 10/3/uL (0.67-4.30); MEAN CORPUS HGB CONC 31.4 g/dL (32.0-36.0); MEAN CORPUSCULAR HEMOGLOB 34.2 pg (26.0-34.0); MEAN CORPUSCULAR VOLUME 108.8 fL (80-100); MEAN PLATELET VOLUME 9.3 fL (9.2-13.0); MONOCYTES 8.9 %; MONOCYTES ABSOLUTE 1.07 10/3/uL (0.21-1.20); NEUTROPHILS 70.5 %; NEUTROPHILS ABSOLUTE 8.43 10/3/uL (2.02-8.40); PLATELET COUNT 240 10/3/uL (150-400); RBC DISTRIBUTION WIDTH 13.8 % (12.0-16.0); RED CELL COUNT 3.19 10/6/uL (4.7-6.1)
[2017-07-18 08:17] LABS: MANUAL DIFF NO %
[2017-07-18 08:21] LABS: SMEAR FOR ABNORMAL CELLS SEE PATHOLOGY REPORT
[2017-07-18 08:34] LABS: A/G RATIO 0.3 (0.7-1.9); ALBUMIN 1.7 G/DL (3.5-5.0); ALKALINE PHOSPHATASE 90 U/L (45-117); BUN (BLOOD UREA NITROGEN) 22 MG/DL (6-23); CALCIUM, SERUM 8.8 MG/DL (8.5-10.4); CHLORIDE, SERUM 105 MMOL/L (96-112); CO2 (CARBON DIOXIDE) 30 MMOL/L (24-34); CREATININE 1.26 MG/DL (0.70-1.30); GFR AFRICAN AMERICAN 61 ML/MIN (>=60); GFR NON AFRICAN AMERICAN 53 ML/MIN (>=60); GLOBULIN 5.4 G/DL (2.5-4.1); POTASSIUM, SERUM 4.2 MMOL/L (3.5-5.3); SGPT(ALT) 28 U/L (5-65); SODIUM, SERUM 141 MMOL/L (135-148); TOTAL BILIRUBIN 0.4 MG/DL (0-1.2); TOTAL PROTEIN 7.1 G/DL (6.0-8.5)
[2017-07-18 08:36] LABS: GLUCOSE, SERUM 103 MG/DL (60-99)
[2017-07-18 08:38] LABS: SGOT(AST) 41 U/L (5-40)
[2017-07-18 14:44] LABS: PROCALCITONIN 0.14 ng/mL (<0.5)
[2017-07-21 04:13] LABS: BASOPHILS 0.2 %; BASOPHILS ABSOLUTE 0.02 10/3/uL (0.0-0.16); EOSINOPHILS 4.8 %; EOSINOPHILS ABSOLUTE 0.46 10/3/uL (0.0-0.53); HEMATOCRIT 32.4 % (40.0-51.0); HEMOGLOBIN 10.2 g/dL (13.6-17.8); IMMATURE GRANULOCYTES 0.6 %; IMMATURE GRANULOCYTES ABSOLUTE 0.06 10/3/uL (0.0-0.11); LYMPHOCYTES 17.8 %; MEAN CORPUS HGB CONC 31.5 g/dL (32.0-36.0); MEAN CORPUSCULAR HEMOGLOB 33.7 pg (26.0-34.0); MEAN CORPUSCULAR VOLUME 106.9 fL (80-100); MEAN PLATELET VOLUME 9.1 fL (9.2-13.0); MONOCYTES 8.9 %; MONOCYTES ABSOLUTE 0.85 10/3/uL (0.21-1.20); NEUTROPHILS 67.7 %; NEUTROPHILS ABSOLUTE 6.46 10/3/uL (2.02-8.40); NUCLEATED RED BLOOD CELLS 0.2 /100WBC (0-0); PLATELET COUNT 281 10/3/uL (150-400); RBC DISTRIBUTION WIDTH 13.9 % (12.0-16.0); RED CELL COUNT 3.03 10/6/uL (4.7-6.1); WHITE BLOOD CELLS 9.6 10/3/uL (4.5-10.5)
[2017-07-21 04:14] LABS: MANUAL DIFF NO %
[2017-07-21 04:31] LABS: A/G RATIO 0.3 (0.7-1.9); ALBUMIN 1.8 G/DL (3.5-5.0); ALKALINE PHOSPHATASE 98 U/L (45-117); CALCIUM, SERUM 9.3 MG/DL (8.5-10.4); CHLORIDE, SERUM 97 MMOL/L (96-112); CO2 (CARBON DIOXIDE) 34 MMOL/L (24-34); CREATININE 1.43 MG/DL (0.70-1.30); GFR AFRICAN AMERICAN 52 ML/MIN (>=60); GFR NON AFRICAN AMERICAN 45 ML/MIN (>=60); GLOBULIN 6.2 G/DL (2.5-4.1); GLUCOSE, SERUM 106 MG/DL (60-99); POTASSIUM, SERUM 3.8 MMOL/L (3.5-5.3); SGOT(AST) 45 U/L (5-40); SGPT(ALT) 43 U/L (5-65); SODIUM, SERUM 138 MMOL/L (135-148); TOTAL BILIRUBIN 0.7 MG/DL (0-1.2)
[2017-07-21 04:32] LABS: BUN (BLOOD UREA NITROGEN) 26 MG/DL (6-23)
[2017-07-22 05:18] LABS: CALCIUM, SERUM 9.4 MG/DL (8.5-10.4); CHLORIDE, SERUM 96 MMOL/L (96-112); CO2 (CARBON DIOXIDE) 36 MMOL/L (24-34); CREATININE 1.53 MG/DL (0.70-1.30); GFR AFRICAN AMERICAN 48 ML/MIN (>=60); GFR NON AFRICAN AMERICAN 42 ML/MIN (>=60); GLUCOSE, SERUM 107 MG/DL (60-99); SODIUM, SERUM 138 MMOL/L (135-148)
[2017-07-22 05:19] LABS: BUN (BLOOD UREA NITROGEN) 31 MG/DL (6-23)
[2017-07-22 05:20] LABS: POTASSIUM, SERUM 4.6 MMOL/L (3.5-5.3)
[2017-07-23 19:40] LABS: THIAMINE 17.2 nmol/L (()); THIAMINE MONOPHOSPHATE 2.7 nmol/L (())
== END 2017-07-23 16:39 | DRG 189 ==
LOC: ER 01:43 → 7NO 06:35
PROVIDERS: Internal Medicine; Nurse Practitioner Acute Care; Physician Assistant; Psychiatry & Neurology Neurology; Student in an Organized Health Care Education/Training Program
PROC: 5A09357 Assistance with Respiratory Ventilation, Less than 24 Consecutive Hours, Continuous Positive Airway Pressure (ICD-10-PCS; 2017-07-17)
PROC: 30253S1 (ICD-10-PCS; principal; 2017-07-19)
DX: J96.22 Acute and chronic respiratory failure with hypercapnia (principal); G93.41 Metabolic encephalopathy; E11.22 Type 2 diabetes mellitus with diabetic chronic kidney disease; I13.0 Hypertensive heart and chronic kidney disease with heart failure and stage 1 through stage 4 chronic kidney disease, or unspecified chronic kidney disease; I50.32 Chronic diastolic (congestive) heart failure; N18.3 Chronic kidney disease, stage 3 (moderate); J44.9 Chronic obstructive pulmonary disease, unspecified; I48.0 Paroxysmal atrial fibrillation; G61.81 Chronic inflammatory demyelinating polyneuritis; E66.2 Morbid (severe) obesity with alveolar hypoventilation; E78.5 Hyperlipidemia, unspecified; J96.21 Acute and chronic respiratory failure with hypoxia; N40.0 Benign prostatic hyperplasia without lower urinary tract symptoms; M19.90 Unspecified osteoarthritis, unspecified site; G47.33 Obstructive sleep apnea (adult) (pediatric); K80.20 Calculus of gallbladder without cholecystitis without obstruction; K57.30 Diverticulosis of large intestine without perforation or abscess without bleeding; D50.9 Iron deficiency anemia, unspecified; Z79.82 Long term (current) use of aspirin; Z85.828 Personal history of other malignant neoplasm of skin; Z96.651 Presence of right artificial knee joint; Z89.421 Acquired absence of other right toe(s); Z87.891 Personal history of nicotine dependence; Z87.440 Personal history of urinary (tract) infections; Z96.643 Presence of artificial hip joint, bilateral; Z66 Do not resuscitate; Z68.39 Body mass index [BMI] 39.0-39.9, adult; R74.0 Nonspecific elevation of levels of transaminase and lactic acid dehydrogenase [LDH]
CPT/HCPCS: 36600; 70450; 70551; 71010; 74176; 80048; 80053; 81001; 82140; 82164; 82306; 82330; 82805; 83605; 83880; 84145; 84155; 84156; 84165; 84166; 84425; 84484; 85025; 85610; 85652; 85730; 86140; 87040; 87070; 87880; 93005; 94010; 94640; 94660; 94762; 97110-GP; 97116-GP; 97161-GP; 97166-GO; 97530-GO; 99285; A9270-GY; G8978-CL-GP; G8979-CJ-GP; G8987-CK-GO; G8988-CJ-GO; J1568; J3411